=== PATIENT | female | born 1995 | race Caucasian/White ===

== ENCOUNTER 2016-08-16 20:18 | Emergency (ER) | payer MEDICAID ==
[2016-08-16 20:18] VITALS: BMI 33.9
[2016-08-16 21:11] VITALS: BP 107/68; PULSE 122; RESP 20; TEMP 98.7; O2SAT 98
[2016-08-16 21:13] LABS: RBC URINE 1 /hpf (0-3); TRANSITIONAL EPITHIAL < 1 /hpf (0-3); URINE BACTERIA RARE (<OCC); URINE BILIRUBIN NEGATIVE (NEGATIVE); URINE BLOOD NEGATIVE (NEGATIVE); URINE COLOR Yellow (YELLOW); URINE GLUCOSE (UA) NORMAL (Normal); URINE KETONE NEGATIVE (NEGATIVE); URINE LEUKOCYTE ESTERASE 1+ Leu/uL (Negative); URINE PROTEIN NEGATIVE (NEGATIVE); URINE UROBILINOGEN NORMAL mg/dL (0.2-1.0); WBC URINE 11 /hpf (0-5)
--- NOTE | 2016-08-16 23:03 | US ---
EXAM: US Pelvis, transabdominal and transvaginal CLINICAL HISTORY: 20 years old, female; Pain; Pelvic pain; Additional info: Pelvic pain, TECHNIQUE: Real-time transabdominal and transvaginal pelvic ultrasound (complete) with image documentation. Transvaginal imaging was used for better evaluation of the endometrium and adnexa. COMPARISON: No relevant prior studies available. FINDINGS: Uterus/cervix: Unremarkable in echogenicity and size measuring 6.4 x 3.4 x 4.0 cm. Normal endometrial stripe thickness. No myometrial mass. Right ovary: Unremarkable in echogenicity and size measuring 3.0 x 1.6 x 2.6 cm. No mass. Normal blood flow. Left ovary: Unremarkable in echogenicity and size measuring 2.7 x 1.3 x 2.8 cm. No mass. Normal blood flow. Free fluid: No free fluid. IMPRESSION: Unremarkable sonographic evaluation of the pelvis, as above.
--- NOTE | 2016-08-16 23:52 | C.PDOC ---
History Of Present Illness Patient is a 20 year old female who presents to the ER with a complaint of nausea, vomiting and dizziness for the past week. Patient states she missed her period and believes she is . Denies vaginal bleeding, fever, trauma, dysuria or diarrhea. Time Seen by Provider: 08/16/16 20:40 Chief Complaint (Nursing): Female Genitourinary History Per: Patient History/Exam Limitations: no limitations Onset/Duration Of Symptoms: Days (7) Current Symptoms Are (Timing): Still Present Quality Of Discomfort: Unable To Describe Associated Symptoms: Nausea, Vomiting. denies: Fever, Diarrhea, Urinary Symptoms, Other ((+) Dizziness (-)Vaginal bleeding) Past Medical History Reviewed: Historical Data, Nursing Documentation, Vital Signs Vital Signs: Last Vital Signs Temp 98.7 F 08/16/16 20:34 Pulse 122 H 08/16/16 20:34 Resp 20 08/16/16 23:22 BP 107/68 08/16/16 20:34 Pulse Ox 98 08/17/16 00:03 - Medical History PMH: No Chronic Diseases Surgical History: No Surg Hx Family History: States: Unknown Family Hx - Social History Hx Alcohol Use: No Hx Substance Use: No - Immunization History Hx Tetanus Toxoid Vaccination: No Hx Influenza Vaccination: No Hx Pneumococcal Vaccination: No Review Of Systems Constitutional: Negative for: Fever Gastrointestinal: Positive for: Nausea, Vomiting. Negative for: Diarrhea Genitourinary: Negative for: Dysuria, Vaginal Bleeding Neurological: Positive for: Dizziness Physical Exam - Physical Exam Appears: Non-toxic, No Acute Distress Skin: Normal Color, Warm, Dry Head: Atraumatic, Normacephalic Oral Mucosa: Moist Neck: Normal, Supple Chest: Symmetrical, No Tenderness Cardiovascular: Rhythm Regular, No Murmur Respiratory: Normal Breath Sounds, No Rales, No Rhonchi, No Wheezing Gastrointestinal/Abdominal: Soft, No Tenderness Neurological/Psych: Oriented x3, Normal Speech, Normal Cognition ED Course And Treatment O2 Sat by Pulse Oximetry: 98 (room air) Pulse Ox Interpretation: Normal Medical Decision Making Medical Decision Making: Patient eloped prior to receiving results. Disposition - Disposition Disposition: ELOPEMENT - ER ONLY Disposition Time: 21:00 Condition: GOOD - Clinical Impression Clinical Impression: Pelvic pain - Scribe Statement The provider has reviewed the documentation as recorded by the Scribe Shaheen William All medical record entries made by the Scribe were at my direction and personally dictated by me. I have reviewed the chart and agree that the record accurately reflects my personal performance of the history, physical exam, medical decision making, and the department course for this patient. I have also personally directed, reviewed, and agree with the discharge instructions and disposition.
== END 2016-08-16 23:22 | disposition left against medical advice (07) ==
LOC: C.ER 20:18
DX: R10.2 Pelvic and perineal pain (principal)